=== PATIENT | female | born 1960 | race American Indian/Alaskan Native ===

== ENCOUNTER 2020-09-19 21:03 | Emergency (ER) | payer OTHER ==
--- NOTE | 2020-09-19 22:04 | Event Note ---
ED Screening Note Date of service: 09/19/20 Time: 21:51 ED Screening Note: 60-y and burping that started approximately 7:00. It was noted that patient had elevated blood pressure with EMS of 200 ear-old [place] female presents to the emergency room for elevated blood pressure 200/ 160 over This initial assessment/diagnostic orders/clinical plan/treatment(s) is/are subject to change based on patients health status, clinical progression and re- assessment by fellow clinical providers in the ED. Further treatment and workup at subsequent clinical providers discretion. Patient/guardian urged not to elope from the ED as their condition may be serious if not clinically assessed and managed. Initial orders include:
[2020-09-19 22:13] LABS: Basophils % (Auto) 0.2 % (0.0-1.8); Eosinophils # (Auto) 0.1 K/mm3 (0.0-0.4); Eosinophils % (Auto) 0.6 % (0.0-4.3); Hematocrit 40.9 % (30.3-42.9); Hemoglobin 13.5 gm/dl (10.1-14.3); Lymphocytes # (Auto) 1.3 K/mm3 (1.2-5.4); Lymphocytes % (Auto) 11.5 % (13.4-35.0); Mean Corpuscular HGB Conc 33 % (30-34); Mean Corpuscular Volume 85 fl (79-97); Monocytes % (Auto) 8.2 % (0.0-7.3); Platelet Count 255 K/mm3 (140-440); Red Cell Distribution Width 14.3 % (13.2-15.2)
[2020-09-19 22:30] LABS: Alanine Aminotransferase 22 units/L (7-56); Albumin 4.3 g/dL (3.9-5); Blood Urea Nitrogen 9 mg/dL (7-17); Calcium 9.3 mg/dL (8.4-10.2); Hemolysis Index 7
--- NOTE | 2020-09-19 22:31 | XRay Report ---
XR chest routine 2V INDICATION / CLINICAL INFORMATION: htn COMPARISON: None available. FINDINGS: SUPPORT DEVICES: None. HEART / MEDIASTINUM: No significant abnormality. LUNGS / PLEURA: Lungs are clear. Costophrenic sulci are sharp. No pneumothorax. ADDITIONAL FINDINGS: No significant additional findings. IMPRESSION: 1. No acute findings. Signer Name: Philip Devlin MD Signed: 09/19/2020 10:26 PM Workstation Name: [id number]
[2020-09-19 22:34] LABS: BUN/Creatinine Ratio 15
--- NOTE | 2020-09-20 00:38 | Emergency Department Report ---
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 At approximately 7 PM she checked her blood pressure and was 200/160. At the time she has some mild nausea belching and a slight headache. She is advised to come to the hospital. States she had no chest pain diaphoresis or. Patient states often she does after eating large meals get some mild stomach upset. She did take her blood pressure medicine prior to her coming to the emergency department. On arrival blood pressure was 152/81 and she was feeling improved. Patient was still complaining of some gassy type symptoms and labs and EKG were done to rule out anginal equivalent - Related Data Previous Rx's Medication Instructions Recorded Last Taken Type Pantoprazole [Protonix] 40 mg PO QDAY #30 tablet 09/20/20 Unknown Rx Allergies Allergy/AdvReac Type Severity Reaction Status Date / Time No Known Allergies Allergy Unverified 09/19/20 21:47 ED Review of Systems ROS: Stated complaint: HBP Other details as noted in HPI Comment: All other systems reviewed and negative ED Past Medical Hx - Past Medical History Previous Medical History?: Yes Hx Hypertension: Yes Hx GERD: Yes - Surgical History Past Surgical History?: No - Social History Smoking Status: Never Smoker Substance Use Type: None - Medications Home Medications: Home Medications Medication Instructions Recorded Confirmed Last Taken Type Pantoprazole [Protonix] 40 mg PO QDAY #30 tablet 09/20/20 Unknown Rx ED Physical Exam - General Limitations: No Limitations General appearance: alert, in no apparent distress - Head Head exam: Present: atraumatic, normocephalic - Eye Eye exam: Present: normal appearance - ENT ENT exam: Present: mucous membranes moist - Neck Neck exam: Present: normal inspection - Respiratory Respiratory exam: Present: normal lung sounds bilaterally. Absent: respiratory distress, wheezes, rales, rhonchi - Cardiovascular Cardiovascular Exam: Present: regular rate, normal rhythm, normal heart sounds. Absent: systolic murmur, diastolic murmur, rubs, gallop - GI/Abdominal GI/Abdominal exam: Present: soft, normal bowel sounds. Absent: distended, tenderness, guarding, rebound - Extremities Exam Extremities exam: Present: normal inspection - Back Exam Back exam: Present: normal inspection - Neurological Exam Neurological exam: Present: alert, oriented X3 - Psychiatric Psychiatric exam: Present: normal affect, normal mood - Skin Skin exam: Present: warm, dry, intact, normal color. Absent: rash ED Course Vital Signs 09/19/20 21:34 Temperature 98.0 F Pulse Rate 75 Respiratory 16 Rate Blood Pressure 152/81 O2 Sat by Pulse 98 Oximetry ED Medical Decision Making - Lab Data Result diagrams: 09/19/20 21:56 09/19/20 21:56 Lab Results 09/19/20 09/19/20 Range/Units 21:56 21:56 WBC 11.6 H (4.5-11.0) K/mm3 RBC 4.80 (3.65-5.03) M/mm3 Hgb 13.5 (10.1-14.3) gm/dl Hct 40.9 (30.3-42.9) % MCV 85 (79-97) fl MCH 28 (28-32) pg MCHC 33 (30-34) % RDW 14.3 (13.2-15.2) % Plt Count 255 (140-440) K/mm3 Lymph % (Auto) 11.5 L (13.4-35.0) % [place] % (Auto) 8.2 H (0.0-7.3) % Eos % (Auto) 0.6 (0.0-4.3) % Baso % (Auto) 0.2 (0.0-1.8) % Lymph # (Auto) 1.3 (1.2-5.4) K/mm3 [place] # (Auto) 1.0 H (0.0-0.8) K/mm3 Eos # (Auto) 0.1 (0.0-0.4) K/mm3 Baso # (Auto) 0.0 (0.0-0.1) K/mm3 Seg Neutrophils % 79.5 H (40.0-70.0) % Seg Neutrophils # 9.2 H (1.8-7.7) K/mm3 Sodium 140 (137-145) mmol/L Potassium 3.9 (3.6-5.0) mmol/L Chloride 104.4 (98-107) mmol/L Carbon Dioxide 23 (22-30) mmol/L Anion Gap 17 mmol/L BUN 9 (7-17) mg/dL Creatinine 0.6 (0.6-1.2) mg/dL Estimated GFR > 60 ml/min BUN/Creatinine Ratio 15 % Glucose 137 H (65-100) mg/dL Calcium 9.3 (8.4-10.2) mg/dL Total Bilirubin 0.20 (0.1-1.2) mg/dL AST 21 (5-40) units/L ALT 22 (7-56) units/L Alkaline Phosphatase 118 (35-129) units/L Troponin T < 0.010 (0.00-0.029) ng/mL Total Protein 7.6 (6.3-8.2) g/dL Albumin 4.3 (3.9-5) g/dL Albumin/Globulin Ratio 1.3 % - EKG Data -: EKG Interpreted by Al EKG shows normal: sinus rhythm, axis, intervals, QRS complexes, ST-T waves Rate: normal - EKG Data Interpretation: normal EKG - Radiology Data [address] [address] XRay Report Signed Patient: SALOMON JEFFRIES MR#: [id number] : 1960 Acct:[id number] Age/Sex: 60 / F ADM Date: 09/19/20 Loc: ED Attending Dr: Ordering Physician: OCTAVIO PISANO Date of Service: 09/19/20 Procedure(s): XR chest routine 2V Accession Number(s): [id number] cc: OCTAVIO PISANO Fluoro Time In Minutes: XR chest routine 2V INDICATION / CLINICAL INFORMATION: htn COMPARISON: None available. FINDINGS: SUPPORT DEVICES: None. HEART / MEDIASTINUM: No significant abnormality. LUNGS / PLEURA: Lungs are clear. Costophrenic sulci are sharp. No pneumothorax. ADDITIONAL FINDINGS: No significant additional findings. IMPRESSION: 1. No acute findings. Signer Name: Philip Devlin MD Signed: 09/19/2020 10:26 PM Workstation Name: [id number] - Medical Decision Making Patient's blood pressure decreased spontaneously to 140 systolic. She is completely asymptomatic at the time of exam. Patient be discharged home. Does sound as though the patient does have some GERD after eating. Start patient on Protonix. Patient stable for discharge. Critical care attestation.: If time is entered above; I have spent that time in minutes in the direct care of this critically ill patient, excluding procedure time. ED Disposition Clinical Impression: Hypertensive urgency, GERD (gastroesophageal reflux disease) Disposition: TO HOME OR SELFCARE Is pt being admited?: No Does the pt Need Aspirin: No Condition: Stable Instructions: Indigestion, [id number], Food Choices for Gastroesophageal Reflux Disease, Adult, Hypertension, Adult Referrals: PRIMARY CARE, [Primary Care Provider] - 3-5 Days Time of Disposition: 00:38
[2020-09-20 00:57] VITALS: BP 146/87
== END 2020-09-20 00:55 | disposition home or self-care (01) ==
LOC: ED 21:03
DX: I16.0 Hypertensive urgency (principal); K21.9 Gastro-esophageal reflux disease without esophagitis; Z79.899 Other long term (current) drug therapy
CPT/HCPCS: 36415; 71046; 80053; 84484; 85025; 93005

== ENCOUNTER 2020-11-21 09:49 | Emergency (ER) | payer OTHER ==
[2020-11-21 09:56] VITALS: BP 157/82
--- NOTE | 2020-11-21 10:30 | Emergency Department Report ---
Chief Complaint: Anxiety Stated Complaint: CANT SLEEP - HPI History of Present Illness: 60-year-old female presents to the emergency room with her that is translating stating that she cannot sleep for 2 to 3 days. reports that she has been having anxiety. Patient was seen by her provider on 11/19/2020 and was given a prescription for Paxil and another prescription. Family member states that one of the prescription should be ready today around 2 PM. Patient denies any thoughts of hurting herself or hurting others. She denies any hallucinations of audio or visual. She denies any chest pain or shortness of breath. - Exam Vital Signs: Vital Signs 11/21/20 09:55 Temperature 122.0 F H Pulse Rate 114 H Respiratory 16 Rate Blood Pressure 157/82 O2 Sat by Pulse 97 Oximetry Physical Exam: Gen: alert oriented NAD Cardic: regular rate and rhythm no murmurs appreciated Resp: Clear to auscultation bilateral no wheezing no rales or rhonchi. Abdomen: Soft nontender nondistended normal bowel sounds. Patient is ambulatory without difficulties. Able to move all extremities without difficulties. MSE screening note: Focused history and physical exam performed. Due to findings the following was ordered: 60-year-old female presents to the emergency room with her that is translating stating that she cannot sleep for 2 to 3 days. reports that she has been having anxiety. Patient was seen by her provider on 11/19/2020 and was given a prescription for Paxil and another prescription. Family member states that one of the prescription should be ready today around 2 PM. Patient denies any thoughts of hurting herself or hurting others. She denies any hallucinations of audio or visual. She denies any chest pain or shortness of breath. Recommend to take medication that is prescribed to you and will be ready at 2 PM. Benadryl as needed for anxiety and sleep. Follow-up with your mental health provider. ED Disposition for MSE Disposition: Z MED SCREENING EXAM-LEFT Is pt being admited?: No Does the pt Need Aspirin: No Condition: Stable Instructions: Supporting Someone With Anxiety, Managing Anxiety, Adult Additional Instructions: Please start prescription that is going to be ready around 2 PM today and to follow-up with her primary care provider mental health provider. She can take Benadryl 25 mg to help her rest tonight. Referrals: PRIMARY CARE, [Primary Care Provider] - 3-5 Days JESSICA MONTELONGO MD [Staff Physician] - 3-5 Days Forms: Accompanied Note
== END 2020-11-21 10:43 | disposition left against medical advice (07) ==
LOC: ED 09:49
DX: F41.9 Anxiety disorder, unspecified (principal); Z53.21 Procedure and treatment not carried out due to patient leaving prior to being seen by health care provider